=== PATIENT | male | born 1965 | race Caucasian/White ===

== ENCOUNTER 2020-08-06 09:57 | Emergency (ER) | payer OTHER ==
[2020-08-06 11:14] LABS: HEMOGLOBIN 13.7 gm/dl (14.0-17.5); RED BLOOD COUNT 4.39 M/UL (4.20-5.50); WHITE BLOOD COUNT 4.6 K/UL (4.5-11.0)
[2020-08-06 11:42] LABS: BUN/CREATININE RATIO 8 (0-10)
== END 2020-08-06 14:07 | disposition home or self-care (01) ==
LOC: ER1 09:57
PROVIDERS: Emergency Medicine
DX: R07.89 Other chest pain (principal); I10 Essential (primary) hypertension
CPT/HCPCS: 80053; 82550; 82553; 83874; 83880; 84484; 85025; 93005; 99285; Q9967